=== PATIENT | male | born 1945 | race Caucasian/White ===

== ENCOUNTER 2024-11-08 15:51 | Inpatient (IN) ==
--- NOTE | 2024-11-08 16:54 | XRay Report ---
EXAM: Radiograph of the Chest 1 View INDICATION: Weakness. TECHNIQUE: Frontal view of the chest. COMPARISON: No relevant prior studies available. FINDINGS: Lungs and pleural spaces: No consolidation or pulmonary edema. No pleural effusion or pneumothorax. Heart: Shape and configuration within normal limits allowing for technique. Mediastinum: Normal contour. Bones/joints: Degenerative changes noted throughout the spine and both shoulders. No lytic or blastic lesions noted. Soft tissues: No abnormality noted. No radiopaque foreign body noted. Vasculature: Ectatic aorta with arch calcification. Upper abdomen: No abnormality noted. IMPRESSION: No acute cardiopulmonary disease. ACT 112: Negative or not required by law. Electronically signed by Betzy Hines 11-08-2024 4:53 PM
[2024-11-08 16:57] LABS: Albumin Globulin Ratio 1.2 (0.9-2); Albumin Level 3.6 gm/dl (3.4-5.0); BUN Creatinine Ratio 24.2 (10-20); Bilirubin,Total 0.7 mg/dl (0.2-1.0); Calcium 8.2 mg/dl (8.6-10.3); Creatinine Clr Calc Pharmacy 75.1 ml/min; Potassium 4.1 mmol/L (3.5-5.1); Total Protein 6.6 gm/dl (6.0-8.3)
[2024-11-08 17:11] LABS: Thyroid Stimulating Hormone 1.726 uIu/ml (0.300-4.500)
--- NOTE | 2024-11-08 17:11 | Electrocardiogram Report ---
Test Reason : Blood Pressure : */* mmHG Vent. Rate : 101 BPM Atrial Rate : 101 BPM P-R Int : 166 ms QRS Dur : 90 ms QT Int : 334 ms P-R-T Axes : 32 -24 30 degrees QTcB Int : 433 ms Sinus tachycardia with Premature atrial complexes Otherwise normal ECG No previous ECGs available Confirmed by Tomas Castro ([id number]) on 11/08/2024 5:10:59 PM Referred By: Confirmed By: Tomas Castro
[2024-11-08 17:32] LABS: Adenovirus PCR Not Detected (NotDetected); Bordetella parapertussis PCR Not Detected (NotDetected); Bordetella pertussis PCR Not Detected (NotDetected); Chlamydia pneumoniae PCR Not Detected (NotDetected); Coronavirus 229E PCR Not Detected (NotDetected); Coronavirus CoV-2 (COVID19)PCR Not Detected (NotDetected); Coronavirus HKU1 PCR Not Detected (NotDetected); Coronavirus NL63 PCR Not Detected (NotDetected); Coronavirus OC43PCR Not Detected (NotDetected); Human Metapneumovirus PCR Not Detected (NotDetected); Influenza A PCR Not Detected (NotDetected); Influenza B PCR Not Detected (NotDetected); Mycoplasma pneumoniae PCR Not Detected (NotDetected); Parainfluenza Virus 1 PCR Not Detected (NotDetected); Parainfluenza Virus 2 PCR Not Detected (NotDetected); Parainfluenza Virus 3 PCR Not Detected (NotDetected); Parainfluenza Virus 4 PCR Not Detected (NotDetected); Respiratory Syncytial VirusPCR Not Detected (NotDetected); Rhinovirus/Enterovirus PCR Not Detected (NotDetected)
[2024-11-08 17:50] LABS: Hematocrit (blood only) 41.4 % (42.0-52.0); Hemoglobin 14.4 g/dl (14.0-18.0); Mean Corpuscular Hgb Conc 34.8 g/dL (32.0-36.0); Mean Platelet Volume 8.9 fL (9.4-12.4); Platelet Count 211 K/uL (130-400); RDW Coefficient of Variation 13.4 % (11.5-14.5); RDW Standard Deviation 43.7 fL (36.4-46.3); Red Blood Count 4.65 M/uL (4.70-6.10); White Blood Count 9.05 K/ul (4.8-10.8)
[2024-11-08 18:34] LABS: Basophils # (auto) 0.06 K/uL (0.00-0.20); Basophils % (auto) 0.7 %; Immature Granulocytes # (auto) 0.07 K/uL (0.01-0.20); Immature Granulocytes % (auto) 0.8 %; Lymphocytes # (auto) 2.12 K/uL (1.20-3.40); Lymphocytes % (auto) 23.4 %; Monocytes # (auto) 0.52 K/uL (0.11-0.59); Monocytes % (auto) 5.7 %; Neutrophils # (auto) 6.28 K/uL (1.40-6.50); Neutrophils % (auto) 69.4 %
[2024-11-08] MEDS: SODIUM CHLORIDE 0.9% 1,000 ML IV ONE (19:02)
[2024-11-08 19:26] LABS: Appearance Urine Cloudy (Clear); Bacteria Urine Automated None Seen (None Seen); Bilirubin Urine Negative (Negative); Blood Urine 1+ (Negative); Color Urine Dark Yellow; Glucose Urine UA Negative (Negative); Ketones Urine 2+ (Negative); Leukocyte Esterase Urine 1+ (Negative); Mucus Urine Present (None Prsent); Nitrite Urine Negative (Negative); Protein Urine 2+ (Negative); RBC Urine Automated >20 /hpf (0-2); Specific Gravity Urine 1.032 (1.000-1.030); Urobilinogen Urine Negative (Negative); WBC Urine Automated >50 /hpf (0-5); pH Urine 5.5 (4.5-7.5)
[2024-11-08] MEDS: OPTIRAY 320 125ml IV ONE (19:39)
--- NOTE | 2024-11-08 20:02 | Emergency Department Note ---
Impression & Plan Urinary tract infection, Elevated troponin, Fever, Acute confusion ED Provider Note NAME: YURI ROBERT AGE: 79 SEX: M : 1945 ARRIVES VIA: Ambulance INFORMANT: Patient, ED PROVIDER(S): French Paulino MD CHIEF COMPLAINT: Confusion, fever HPI: This is a 71-year male presents for fever and confusion. Patient was at he does appointment in [place]. He began having generalized weakness, lethargy. EMS was then called. Patient was noted to be hypoxic for EMS to about 89%. Required 2 L nasal cannula. He is febrile to 38 degrees and given 1 g of Tylenol en route. Patient's is flu positive. EMS/physician was concerned about UTI however. Currently patient does any current chest pain, shortness of breath, fever, chills, nausea or vomiting. He is somewhat slow to respond and appears somewhat altered as well ROS: See above HPI for pertinent positives & negatives. A total of 10 systems reviewed and were otherwise negative. PAST MEDICAL HISTORY: See Below PAST SURGICAL HISTORY: See Below FAMILY HISTORY: See Below SOCIAL HISTORY: See Below HOME MEDICATIONS: See Below ALLERGIES: See Below VITALS: See Below PHYSICAL EXAMINATION: General: resting comfortably in no acute distress Head: Normocephalic and atraumatic Eyes: Normal inspection, extraocular muscles intact Ear, nose, throat: Normal external exam Neck: Normal range of motion Respiratory: lungs clear to auscultation bilaterally Cardiovascular: Regular rate/rhythm, no murmur GI: soft, nontender, no guarding or rebound Extremities: nontender, moves all extremities Neuro: The patient awake, not oriented appropriately conversive, no focal deficits, symmetric faces Skin: Warm, dry, and intact MEDICAL DECISION MAKING: This is a 79-year-old male for fever and confusion. Patient does have a somewhat tender suprapubic region but otherwise reassuring abdomen. He is hypoxic here requiring 4 L nasal cannula. He has been febrile. -Will do a pressure panel, x-ray, basic blood work, urinalysis -WC count is 9, hemoglobin is 14.4. Sodium is 128, slightly low. Troponin elevated at 32 without current chest pain -ECG independently interpreted by me with sinus tachycardia with PAC, rate of 101, normal AL, normal QRS, normal QTc, no ST segment elevations consistent with STEMI criteria -Urinalysis reveals signs of UTI. Will give ceftriaxone here -Chest Xray independently interpreted by me showing no pneumothorax, focal opacity, or pleural effusions. -Upper restaurant panel negative -With patient being hypoxic with a clear chest x-ray I will do CTA PE protocol -CTA of chest does not show PE, does show emphysema and sequelae of pulmonary arterial hypertension. Cardiomegaly with ascending aortic aneurysm is noted as well -Care discussed with Dr. Chavis for admission of UTI, fever, confusion, elevated troponin Differential diagnosis: Sepsis, pneumonia, UTI, upper respiratory infection, stroke Independent History obtained from: EMS Diagnostics interpreted by me: ECG: See above Cardiac Monitoring: An order was placed for continuous cardiac monitoring. The monitor shows a rate of 101 with sinus rhythm. Past Med/Surg History Problem List (Updated 11/09/24 @ 00:59 by French Paulino MD) Acute confusion (Acute) Fever (Acute) Elevated troponin (Acute) Balanitis BPH NOS w ur obs/LUTS Urinary tract infection (Acute) Social History Smoking Status: Former smoker Hx Alcohol Use: No Hx Substance Use: No Preferred Language: Telugu Cloud Infrastructure Architect Required: No Beliefs That Will Affect Care: None Current Living Situation: Spouse Other Information That Helps Us Care for You: No Feels Safe at Home: Yes Safety Concerns: Feels Safe At This Time Assistive Devices: Glasses Allergies Allergies Allergy/AdvReac Type Severity Reaction Status Date / Time atorvastatin AdvReac MYALGIA Verified 11/08/24 16:52 codeine AdvReac Vomiting Verified 11/08/24 16:54 hydrocodone AdvReac Nausea Verified 11/08/24 16:54 Home Meds Home Medications Medication Instructions Recorded Confirmed aspirin 81 mg tablet,delayed 81 mg PO DAILY 11/08/24 11/08/24 release meloxicam 7.5 mg tablet 7.5 mg PO BID 11/08/24 11/08/24 metformin 500 mg tablet 500 mg PO BID 11/08/24 11/08/24 prednisone 5 mg tablet 5 mg PO QAM 11/08/24 11/08/24 tamsulosin 0.4 mg capsule 0.4 mg PO HS 11/08/24 11/08/24 Results & Data (ED) Vital Signs Vital Signs - 24 hr 11/08/24 16:12 11/08/24 16:14 11/08/24 16:19 Temperature 37.3 C 37.3 C Temperature Source Oral Oral Pulse Rate 109 H Pulse Rate [Finger] 104 H Pulse Rhythm Regular Pulse Rhythm [Finger] Pulse Strength Normal Pulse Strength [Finger] Respiratory Rate 26 H 26 H Respiratory Effort / Characteristics Non-Labored Spontaneous Non-Labored Spontaneous Respiratory Depth Normal Normal Blood Pressure 124/76 Blood Pressure [Right Arm] 124/76 Blood Pressure Mean 92 Blood Pressure Mean [Right Arm] 92 Blood Pressure Position Sitting Blood Pressure Position [Right Arm] Pulse Oximetry 90 93 92 Oxygen Delivery Method Room Air Nasal Cannula Nasal Cannula Nasal Cannula Oxygen Flow Rate 0 4 4 Sepsis Recent Fever Within 48 Hours Yes Sepsis New/Unexplained Change in Mental Status No Sepsis Action Taken by Nursing Physician Notified Oxygen Flow Rate - Titration 3 Pulse Oximetry Post Tiitration 94 11/08/24 16:19 11/08/24 16:43 11/08/24 18:17 Temperature Temperature Source Pulse Rate 101 H 101 H Pulse Rate [Finger] 82 Pulse Rhythm Pulse Rhythm [Finger] Regular Pulse Strength Pulse Strength [Finger] Normal Respiratory Rate 22 22 Respiratory Effort / Characteristics Non-Labored Spontaneous Respiratory Depth Normal Blood Pressure Blood Pressure [Right Arm] 106/60 Blood Pressure Mean Blood Pressure Mean [Right Arm] 75 Blood Pressure Position Blood Pressure Position [Right Arm] Lying Pulse Oximetry 93 97 Oxygen Delivery Method Nasal Cannula Room Air Oxygen Flow Rate 4 Sepsis Recent Fever Within 48 Hours Sepsis New/Unexplained Change in Mental Status Sepsis Action Taken by Nursing Oxygen Flow Rate - Titration Pulse Oximetry Post Tiitration 11/08/24 20:44 Temperature Temperature Source Pulse Rate Pulse Rate [Finger] 97 H Pulse Rhythm Pulse Rhythm [Finger] Regular Pulse Strength Pulse Strength [Finger] Normal Respiratory Rate 16 Respiratory Effort / Characteristics Non-Labored Spontaneous Respiratory Depth Normal Blood Pressure Blood Pressure [Right Arm] 104/65 Blood Pressure Mean Blood Pressure Mean [Right Arm] 78 Blood Pressure Position Blood Pressure Position [Right Arm] Lying Pulse Oximetry 98 Oxygen Delivery Method Nasal Cannula Oxygen Flow Rate 4 Sepsis Recent Fever Within 48 Hours Sepsis New/Unexplained Change in Mental Status Sepsis Action Taken by Nursing Oxygen Flow Rate - Titration Pulse Oximetry Post Tiitration Laboratory Data 11/08/24 17:23 11/08/24 16:10 Lab Results 11/08/24 11/08/24 11/08/24 Range/Units 16:10 16:59 17:23 WBC Cancelled 9.05 RBC Cancelled 4.65 L Hgb Cancelled 14.4 Hct Cancelled 41.4 L MCV Cancelled 89.0 MCH Cancelled 31.0 MCHC Cancelled 34.8 RDW Std Deviation Cancelled 43.7 RDW Coeff of Crow Cancelled 13.4 Plt Count Cancelled 211 MPV Cancelled 8.9 L Immature Gran % (Auto) Cancelled 0.8 Neut % (Auto) Cancelled 69.4 Lymph % (Auto) Cancelled 23.4 Barron % (Auto) Cancelled 5.7 Eos % (Auto) Cancelled 0.0 Baso % (Auto) Cancelled 0.7 Neut # (Auto) Cancelled 6.28 Lymph # (Auto) Cancelled 2.12 Barron # (Auto) Cancelled 0.52 Eos # (Auto) Cancelled 0.00 Baso # (Auto) Cancelled 0.06 Immature Gran # (Auto) Cancelled 0.07 Absolute Nucleated RBC Cancelled Nucleated RBC % (auto) Cancelled Neutrophils % (Manual) Cancelled Band Neutrophils % Cancelled Lymphocytes % (Manual) Cancelled Prolymphocyte % Cancelled Reactive Lymphs % (Man) Cancelled Monocytes % (Manual) Cancelled Eosinophils % (Manual) Cancelled Basophils % (Manual) Cancelled Metamyelocytes % (Man) Cancelled Myelocytes % (Man) Cancelled Promyelocytes % (Man) Cancelled Blast Cells % (Manual) Cancelled Plasma Cell % (Manual) Cancelled Other Cells % Cancelled Nucleated RBC % Cancelled Neutrophils # (Manual) Cancelled Band Neutrophils # Cancelled Total Absolute Neuts Cancelled Lymphocytes # (Manual) Cancelled Prolymphocyte # Cancelled Reactive Lymphs # Cancelled Total Abs Lymphocytes Cancelled Monocytes # (Manual) Cancelled Eosinophils # (Manual) Cancelled Basophils # (Manual) Cancelled Metamyelocytes # (Man) Cancelled Myelocytes # (Manual) Cancelled Promyelocytes # (Man) Cancelled Blast Cells # (Man) Cancelled Plasma Cell # (Manual) Cancelled Other Cells # Cancelled Nucleated RBCs # (Man) Cancelled Hypersegmented Neuts Cancelled Hyposegmented Neuts Cancelled Hypogranular Neuts Cancelled Large Granular Lymphs Cancelled # Lrg Granular Lymphs Cancelled Hairy Cells Cancelled Smudge Cells Cancelled Toxic Granulation Cancelled Toxic Vacuolation Cancelled Dohle Bodies Cancelled Teresa Rods Cancelled Platelet Estimate Cancelled Hypogranular Platelets Cancelled Giant Platelets Cancelled Platelet Satelliting Cancelled RBC Morphology Cancelled Polychromasia Cancelled Hypochromasia Cancelled Poikilocytosis Cancelled Basophilic Stippling Cancelled Anisocytosis Cancelled Microcytosis Cancelled Macrocytosis Cancelled Spherocytes Cancelled Pappenheimer Bodies Cancelled Sickle Cells Cancelled Target Cells Cancelled Tear Drop Cells Cancelled Ovalocytes Cancelled Stomatocytes Cancelled Nguyen-Nucla Bodies Cancelled Echinocytes Cancelled Acanthocytes (Spur) Cancelled Rouleaux Cancelled RBC Agglutinates Cancelled Schistocytes Cancelled Sezary Cell Cancelled Sodium 128 L (136-145) mmol/L Potassium 4.1 (3.5-5.1) mmol/L Chloride 98 (98-107) mmol/L Carbon Dioxide 21 (21-32) mmol/L Anion Gap 9 (3-11) BUN 22 (6-23) mg/dl Creatinine 0.91 (0.6-1.4) mg/dl Est Cr Clr Drug Dosing 75.1 ml/min eGFR 86.27 BUN/Creatinine Ratio 24.2 H (10-20) Glucose 115 H (70-99(Fasting)) mg/dl Osmolality 276 L (280-300) mOsm/kg Lactate 1.1 (0.4-2.0) mmol/L Calcium 8.2 L (8.6-10.3) mg/dl Phosphorus 2.1 L (2.5-4.9) mg/dl Magnesium 1.7 (1.7-2.4) mg/dl Total Bilirubin 0.7 (0.2-1.0) mg/dl AST 31 (13-39) U/L ALT 24 (7-52) U/L Alkaline Phosphatase 54 (34-104) U/L Troponin I High Sens 32.0 H (0-20) pg/ml Total Protein 6.6 (6.0-8.3) gm/dl Albumin 3.6 (3.4-5.0) gm/dl Globulin 3.0 (2.5-4.0) gm/dl Albumin/Globulin Ratio 1.2 (0.9-2) TSH 1.726 (0.300-4.500) uIu/ml Urine Color Urine Appearance (Clear) Urine pH (4.5-7.5) Ur Specific Stafford (1.000-1.030) Urine Protein (Negative) Urine Glucose (UA) (Negative) Urine Ketones (Negative) Urine Blood (Negative) Urine Nitrite (Negative) Urine Bilirubin (Negative) Urine Urobilinogen (Negative) Ur Leukocyte Esterase (Negative) Urine WBC (Auto) (0-5) /hpf Urine RBC (Auto) (0-2) /hpf U Hyaline Cast (Auto) (0-2) /lpf U Epithel Cells (Auto) (0-2) /hpf Urine Bacteria (Auto) (None Seen) Urine Mucus (None Prsent) Ur Random Sodium mmol/L Adenovirus (PCR) Not Detected (NotDetected) B. pertussis DNA (PCR) Not Detected (NotDetected) B.parapertussis DNA PCR Not Detected (NotDetected) C. pneumoniae DNA (PCR) Not Detected (NotDetected) Coronavirus OC43 (PCR) Not Detected (NotDetected) Coronavirus HKU1 (PCR) Not Detected (NotDetected) Coronavirus 229E (PCR) Not Detected (NotDetected) SARS-CoV-2 (PCR) Not Detected (NotDetected) Coronavirus NL63 (PCR) Not Detected (NotDetected) Human Metapneumovir PCR Not Detected (NotDetected) Influenza Type A (PCR) Not Detected (NotDetected) Influenza Type B (PCR) Not Detected (NotDetected) M. pneumoniae (PCR) Not Detected (NotDetected) Parainfluenza 1 (PCR) Not Detected (NotDetected) Parainfluenza 2 (PCR) Not Detected (NotDetected) Parainfluenza 3 (PCR) Not Detected (NotDetected) Parainfluenza 4 (PCR) Not Detected (NotDetected) RSV (PCR) Not Detected (NotDetected) Entero/Rhino (PCR) Not Detected (NotDetected) Blood Parasites ID Cancelled 11/08/24 11/08/24 Range/Units 17:31 18:58 WBC RBC Hgb Hct MCV MCH MCHC RDW Std Deviation RDW Coeff of Crow Plt Count MPV Immature Gran % (Auto) Neut % (Auto) Lymph % (Auto) Barron % (Auto) Eos % (Auto) Baso % (Auto) Neut # (Auto) Lymph # (Auto) Barron # (Auto) Eos # (Auto) Baso # (Auto) Immature Gran # (Auto) Absolute Nucleated RBC Nucleated RBC % (auto) Neutrophils % (Manual) Band Neutrophils % Lymphocytes % (Manual) Prolymphocyte % Reactive Lymphs % (Man) Monocytes % (Manual) Eosinophils % (Manual) Basophils % (Manual) Metamyelocytes % (Man) Myelocytes % (Man) Promyelocytes % (Man) Blast Cells % (Manual) Plasma Cell % (Manual) Other Cells % Nucleated RBC % Neutrophils # (Manual) Band Neutrophils # Total Absolute Neuts Lymphocytes # (Manual) Prolymphocyte # Reactive Lymphs # Total Abs Lymphocytes Monocytes # (Manual) Eosinophils # (Manual) Basophils # (Manual) Metamyelocytes # (Man) Myelocytes # (Manual) Promyelocytes # (Man) Blast Cells # (Man) Plasma Cell # (Manual) Other Cells # Nucleated RBCs # (Man) Hypersegmented Neuts Hyposegmented Neuts Hypogranular Neuts Large Granular Lymphs # Lrg Granular Lymphs Hairy Cells Smudge Cells Toxic Granulation Toxic Vacuolation Dohle Bodies Teresa Rods Platelet Estimate Hypogranular Platelets Giant Platelets Platelet Satelliting RBC Morphology Polychromasia Hypochromasia Poikilocytosis Basophilic Stippling Anisocytosis Microcytosis Macrocytosis Spherocytes Pappenheimer Bodies Sickle Cells Target Cells Tear Drop Cells Ovalocytes Stomatocytes Nguyen-Nucla Bodies Echinocytes Acanthocytes (Spur) Rouleaux RBC Agglutinates Schistocytes Sezary Cell Sodium (136-145) mmol/L Potassium (3.5-5.1) mmol/L Chloride (98-107) mmol/L Carbon Dioxide (21-32) mmol/L Anion Gap (3-11) BUN (6-23) mg/dl Creatinine (0.6-1.4) mg/dl Est Cr Clr Drug Dosing ml/min eGFR BUN/Creatinine Ratio (10-20) Glucose (70-99(Fasting)) mg/dl Osmolality (280-300) mOsm/kg Lactate (0.4-2.0) mmol/L Calcium (8.6-10.3) mg/dl Phosphorus (2.5-4.9) mg/dl Magnesium (1.7-2.4) mg/dl Total Bilirubin (0.2-1.0) mg/dl AST (13-39) U/L ALT (7-52) U/L Alkaline Phosphatase (34-104) U/L Troponin I High Sens 33.4 H (0-20) pg/ml Total Protein (6.0-8.3) gm/dl Albumin (3.4-5.0) gm/dl Globulin (2.5-4.0) gm/dl Albumin/Globulin Ratio (0.9-2) TSH (0.300-4.500) uIu/ml Urine Color Dark Yellow Urine Appearance Cloudy A (Clear) Urine pH 5.5 (4.5-7.5) Ur Specific Stafford 1.032 H (1.000-1.030) Urine Protein 2+ H (Negative) Urine Glucose (UA) Negative (Negative) Urine Ketones 2+ H (Negative) Urine Blood 1+ H (Negative) Urine Nitrite Negative (Negative) Urine Bilirubin Negative (Negative) Urine Urobilinogen Negative (Negative) Ur Leukocyte Esterase 1+ H (Negative) Urine WBC (Auto) >50 H (0-5) /hpf Urine RBC (Auto) >20 H (0-2) /hpf U Hyaline Cast (Auto) 6-10 H (0-2) /lpf U Epithel Cells (Auto) 3-5 H (0-2) /hpf Urine Bacteria (Auto) None Seen (None Seen) Urine Mucus Present A (None Prsent) Ur Random Sodium 58 mmol/L Adenovirus (PCR) (NotDetected) B. pertussis DNA (PCR) (NotDetected) B.parapertussis DNA PCR (NotDetected) C. pneumoniae DNA (PCR) (NotDetected) Coronavirus OC43 (PCR) (NotDetected) Coronavirus HKU1 (PCR) (NotDetected) Coronavirus 229E (PCR) (NotDetected) SARS-CoV-2 (PCR) (NotDetected) Coronavirus NL63 (PCR) (NotDetected) Human Metapneumovir PCR (NotDetected) Influenza Type A (PCR) (NotDetected) Influenza Type B (PCR) (NotDetected) M. pneumoniae (PCR) (NotDetected) Parainfluenza 1 (PCR) (NotDetected) Parainfluenza 2 (PCR) (NotDetected) Parainfluenza 3 (PCR) (NotDetected) Parainfluenza 4 (PCR) (NotDetected) RSV (PCR) (NotDetected) Entero/Rhino (PCR) (NotDetected) Blood Parasites ID Administered Medications Sodium Chloride (Nss) 1,000 mls @ 80 mls/hr IV .[id number] Stop: 11/09/24 10:39 Last Admin: 11/08/24 22:49 Dose: 80 mls/hr Documented By: ABILIO Discontinued Medications Sodium Chloride (Nss) 1,000 mls @ 999 mls/hr IV .[id number] ONE Stop: 11/08/24 19:21 Last Infusion: 11/08/24 20:08 Dose: Infused Documented By: Admin: 11/08/24 19:02 Dose: 999 mls/hr Documented By: HARDY Ceftriaxone Sodium (Rocephin) 2,000 mg in 50 mls @ 100 mls/hr IV NOW STA Stop: 11/08/24 20:12 Last Infusion: 11/08/24 20:54 Dose: Infused Documented By: Admin: 11/08/24 20:24 Dose: 100 mls/hr Documented By: ABILIO Ioversol (Optiray 320 125ml) 119 ml IV ONCE ONE Stop: 11/08/24 19:40 Last Admin: 11/08/24 19:39 Dose: 119 ml Documented By: SHRAVAN Imaging Data Radiologist's Impression: Chest X-Ray 11/08/24 16:15 EXAM: Radiograph of the Chest 1 View INDICATION: Weakness. TECHNIQUE: Frontal view of the chest. COMPARISON: No relevant prior studies available. FINDINGS: Lungs and pleural spaces: No consolidation or pulmonary edema. No pleural effusion or pneumothorax. Heart: Shape and configuration within normal limits allowing for technique. Mediastinum: Normal contour. Bones/joints: Degenerative changes noted throughout the spine and both shoulders. No lytic or blastic lesions noted. Soft tissues: No abnormality noted. No radiopaque foreign body noted. Vasculature: Ectatic aorta with arch calcification. Upper abdomen: No abnormality noted. IMPRESSION: No acute cardiopulmonary disease. ACT 112: Negative or not required by law. Electronically signed by Betzy Hines 11-08-2024 4:53 PM Chest CTA 11/08/24 19:12 Exam(s): CTA CHEST IV Amt: 119ml optiray 320 EXAM: CT Angiography Chest With Intravenous Contrast CLINICAL HISTORY: Reason for exam: PE. TECHNIQUE: Axial computed tomographic angiography images of the chest with intravenous contrast. CTDI is 27.63 mGy and DLP is 874.47 mGy-cm. Automated exposure control was utilized for the study. A dose lowering technique was utilized adhering to the principles of ALARA. MIP reconstructed images were created and reviewed. COMPARISON: X-ray chest: 11/08/2024 FINDINGS: Diagnostic sensitivity is reduced by motion artifact. Pulmonary arteries: Mildly enlarged: 32 mm in diameter.. No pulmonary embolism. Aorta: Calcified/noncalcified atherosclerosis. Ascending aortic aneurysm: 44 mm in diameter. Heart: Mild/moderate cardiomegaly. Significant calcified atherosclerosis of the left coronary arteries, especially LAD. No significant pericardial effusion. No evidence of RV dysfunction. Lungs: Central airways are patent. Mild/moderate diffuse bronchial wall thickening, mild dilatation. Bibasilar subpleural and parenchymal fibrotic interstitial thickening with linear atelectatic changes. Mild centrilobular emphysematous changes. No mass. No consolidation. Pleural space: Right posterior pleural small rounded calcified plaques. No significant effusion. No pneumothorax. An elevated diaphragm LT>RT Bones/joints: No acute fracture. No dislocation. Multilevel degenerative spondylitic changes. Increased thoracic kyphosis. Soft tissues: Unremarkable. Lymph nodes: Unremarkable. No enlarged lymph nodes. Other findings: Liver and pancreas fatty infiltration. A contracted gallbladder. IMPRESSION: No evidence of pulmonary embolism. Centrilobular mild emphysema. Mildly enlarged main pulmonary artery, likely sequela secondary pulmonary arterial hypertension. Coronary arterial and aortic significant calcified/noncalcified atherosclerosis. Cardiomegaly. Ascending aortic aneurysm. . Electronically signed by: Kenny Neal MD, DORA 11/08/24 21:41 PM Discharge Plan Visit Data Chief Complaint: Lethargic ED Provider: French Paulino Discharge Problem: Urinary tract infection, Elevated troponin, Fever, Acute confusion Patient Disposition: Admitted As Inpatient Discharge Instructions Interventions: ED Discharge Assessment Last Done: 11/08/24 22:10
[2024-11-08] MEDS: cefTRIAXone SODIUM 2,000 MG/50 ML BAG IV STA (20:24)
--- NOTE | 2024-11-08 21:29 | History & Physical Report ---
Date of Service November 08, 2024 Assessment & Plan (1) Acute confusion: Plan: 79yo male with history of DM, BPH presenting with several days of fever, chills, progressive weakness/fatigue and confusion. endorses some baseline decline in memory of late. Suspect acute infection contributing to confusion. Likely UTI. -Admit to medical -Frequent orientation and delirium prevention strategies -Follow urine culture -Continue Ceftriaxone 2gm IV daily -Tylenol PRN -Zofran PRN (2) Urinary tract infection: Plan: Suspect UTI as source of patient's fever, chills and confusion. Noted to be barfield ving difficulty passing urine in the ER. Escobar catheter placed -Follow cultures sent from ER -Continue Ceftriaxone 2gm IV daily -Escobar catheter management -NSS at 80mL/hr x 2L ordered -Tylenol PRN -Zofran PRN (3) Hyponatremia: Plan: [id number], possibly contributing to confusion as well. No prior records available of prior Na. Patient appears clinically dry on exam - suspect hyponatremia secondary to decreased intake -Check urine and serum osmolality -Check random urine Na -Hydration with NSS at 80mL/hr x 2L ordered -Repeat chemistry in AM (4) Diabetes: Plan: Adequate control at home on Metformin. -Hold Metformin -ISS - goal blood sugar 110 - 140 (5) BPH (benign prostatic hyperplasia): Plan: Chronic. Patient having difficulty urinating in the ER. -Maintain Escobar catheter for now -Monitor I/Os -Continue Flomax 0.4mg po qHS (6) Polymyalgia rheumatica: Plan: Chronic. Consider acute flare if weakness continues after appropriate UTI treatment -Continue Prednisone 5mg po daily for now -Conitnue meloxicam 7.5mg po BID (monitor renal function) -Monitor Plan F/E/N - NSS at 80mL/hr x 2L, monitor electrolytes, Phos repletion with Neutraphos QID x 2 days, CC diet as tolerated Ppx - Lovenox for DVT prophylaxis Code - Full per discussion with patient Dispo - Observation to medical History of Present Illness Chief Complaint: confusion Primary Care Provider: DO Timbo Moreira is a pleasant 79yo male with history of DM, BPH and PMR on Prednisone 5mg po daily presenting with confusion. Patient developed URI symptoms on 10/30/24 with cough, congestion, fevers and chills. reports that since then he has had progressive generalized weakness, fatigue and confusion. He has spent a lot of time in bed. He has become more forgetful and disoriented at times. reports yesterday 11/07/24 he seemed to be even more confused than before - he didn't eat anything. Today he was more sleepy and difficult to arouse - reports that he was "incoherent" for a short time prior to arrival and was having difficulty dressing himself and ambulating. Patient endorses fever, chills, poor appetite and episodes of confusion/disorientation. He has been having some pain in his neck and shoulders which he has been using heat and Tylenol. Otherwise denies chest pain, palpitations, abdominal pain, nausea, vomiting, diarrhea. He has not had any urinary complaints. No focal deficits per . Patient was seen by his PCP today and was sent to the ER. In the ER patient initially afebrile with tachycardia and tachypnea. Was noted to be hypoxic initially and was placed on supplemental O2 - O2 turned off during my encounter and patient's saturation remained >93%. ER Course: NSS x 1L Ceftriaxone 2gm Allergies Allergy/AdvReac Type Severity Reaction Status Date / Time atorvastatin AdvReac MYALGIA Verified 11/08/24 16:52 codeine AdvReac Vomiting Verified 11/08/24 16:54 hydrocodone AdvReac Nausea Verified 11/08/24 16:54 Home Medications Medication Instructions Recorded Confirmed Type aspirin 81 mg tablet,delayed 81 mg PO DAILY 11/08/24 11/08/24 History release meloxicam 7.5 mg tablet 7.5 mg PO BID 11/08/24 11/08/24 History metformin 500 mg tablet 500 mg PO BID 11/08/24 11/08/24 History prednisone 5 mg tablet 5 mg PO QAM 11/08/24 11/08/24 History tamsulosin 0.4 mg capsule 0.4 mg PO HS 11/08/24 11/08/24 History Past Med/Surg History Problem List (Updated 11/09/24 @ 03:04 by Cynthia Chavis DO) Hyponatremia Acute confusion (Acute) Fever (Acute) Elevated troponin (Acute) Balanitis BPH NOS w ur obs/LUTS Urinary tract infection (Acute) Medical History (Updated 01/24/25 @ 03:04 by Cynthia Chavis DO) Polymyalgia rheumatica BPH (benign prostatic hyperplasia) Diabetes Social History Smoking Status: Former smoker Hx Alcohol Use: No Hx Substance Use: No Preferred Language: Japanese Reversal Print Inspector Required: No Beliefs That Will Affect Care: None Current Living Situation: Spouse Other Information That Helps Us Care for You: No Feels Safe at Home: Yes Safety Concerns: Feels Safe At This Time Assistive Devices: Glasses Review of Systems Review of Systems: All systems reviewed & are unremarkable except as noted in HPI & below Physical Exam Physical Exam: General: patient resting comfortably, NAD, non-toxic in appearance, slow to answer questions but does answer appropriately Skin: warm, dry, intact, no rashes or lesions HEENT: NC/AT, PERRL, EOMI, anicteric sclera, conjunctiva without injection, external ear normal to inspection and nontender, nares patent, dry mucus membranes, dentition intact, no oropharyngeal lesions, neck supple, trachea midline, no LAD, no thyromegaly, no JVD Heart: +S1/S2, regular, tachycardic, no m/r/g Lungs: equal air entry bilaterally, faint crackles in right base, no rhonchi/wheezes Abd: +BS, soft, NT/ND, no masses/organomegaly/ascites Ext: warm, 2+ pulses in UE/LE bilaterally, no clubbing/cyanosis or edema Neuro: nonfocal, patient AA&O x 4, speech intact, no facial droop, moving all extremities on command with equal strength 5/5 Results & Data Results & Data Vital Signs (Past 12 Hours) Vital Signs Temp Pulse Pulse Resp BP BP Pulse Ox 11/08/24 20:44 97 H 16 104/65 98 11/08/24 18:17 82 22 106/60 97 11/08/24 16:43 101 H 11/08/24 16:19 101 H 22 93 11/08/24 16:19 37.3 C 104 H 26 H 124/76 92 11/08/24 16:14 37.3 C 109 H 26 H 124/76 93 11/08/24 16:12 90 O2 Del Method O2 Flow Rate 11/08/24 20:44 Nasal Cannula 4 11/08/24 18:17 Room Air 11/08/24 16:43 11/08/24 16:19 Nasal Cannula 4 11/08/24 16:19 Nasal Cannula 4 11/08/24 16:14 Nasal Cannula 4 11/08/24 16:12 Room Air, Nasal Cannula 0 Laboratory Results Laboratory Results WBC 9.05 K/ul (4.8-10.8) 11/08/24 17:23 RBC 4.65 M/uL (4.70-6.10) L 11/08/24 17:23 Hgb 14.4 g/dl (14.0-18.0) 11/08/24 17:23 Hct 41.4 % (42.0-52.0) L 11/08/24 17:23 MCV 89.0 fL (80.0-100.0) 11/08/24 17:23 MCH 31.0 pg (25.0-34.0) 11/08/24 17: MCHC 34.8 g/dL (32.0-36.0) 11/08/24 17:23 RDW Std Deviation 43.7 fL (36.4-46.3) 11/08/24 17:23 RDW Coeff of Crow 13.4 % (11.5-14.5) 11/08/24 17:23 Plt Count 211 K/uL (130-400) 11/08/24 17:23 MPV 8.9 fL (9.4-12.4) L 11/08/24 17:23 Immature Gran % (Auto) 0.8 % 11/08/24 17:23 Neut % (Auto) 69.4 % 11/08/24 17:23 Lymph % (Auto) 23.4 % 11/08/24 17:23 [place] % (Auto) 5.7 % 11/08/24 17:23 Eos % (Auto) 0.0 % 11/08/24 17:23 Baso % (Auto) 0.7 % 11/08/24 17:23 Neut # (Auto) 6.28 K/uL (1.40-6.50) 11/08/24 17:23 Lymph # (Auto) 2.12 K/uL (1.20-3.40) 11/08/24 17:23 [place] # (Auto) 0.52 K/uL (0.11-0.59) 11/08/24 17:23 Eos # (Auto) 0.00 K/uL (0.00-0.50) 11/08/24 17:23 Baso # (Auto) 0.06 K/uL (0.00-0.20) 11/08/24 17:23 Immature Gran # (Auto) 0.07 K/uL (0.01-0.20) 11/08/24 17:23 Absolute Nucleated RBC Cancelled 11/08/24 16:10 Nucleated RBC % (auto) Cancelled 11/08/24 16:10 Neutrophils % (Manual) Cancelled 11/08/24 16:10 Band Neutrophils % Cancelled 11/08/24 16:10 Lymphocytes % (Manual) Cancelled 11/08/24 16:10 Prolymphocyte % Cancelled 11/08/24 16:10 Reactive Lymphs % (Man) Cancelled 11/08/24 16:10 Monocytes % (Manual) Cancelled 11/08/24 16:10 Eosinophils % (Manual) Cancelled 11/08/24 16:10 Basophils % (Manual) Cancelled 11/08/24 16:10 Metamyelocytes % (Man) Cancelled 11/08/24 16:10 Myelocytes % (Man) Cancelled 11/08/24 16:10 Promyelocytes % (Man) Cancelled 11/08/24 16:10 Blast Cells % (Manual) Cancelled 11/08/24 16:10 Plasma Cell % (Manual) Cancelled 11/08/24 16:10 Other Cells % Cancelled 11/08/24 16:10 Nucleated RBC % Cancelled 11/08/24 16:10 Neutrophils # (Manual) Cancelled 11/08/24 16:10 Band Neutrophils # Cancelled 11/08/24 16:10 Total Absolute Neuts Cancelled 11/08/24 16:10 Lymphocytes # (Manual) Cancelled 11/08/24 16:10 Prolymphocyte # Cancelled 11/08/24 16:10 Reactive Lymphs # Cancelled 11/08/24 16:10 Total Abs Lymphocytes Cancelled 11/08/24 16:10 Monocytes # (Manual) Cancelled 11/08/24 16:10 Eosinophils # (Manual) Cancelled 11/08/24 16:10 Basophils # (Manual) Cancelled 11/08/24 16:10 Metamyelocytes # (Man) Cancelled 11/08/24 16:10 Myelocytes # (Manual) Cancelled 11/08/24 16:10 Promyelocytes # (Man) Cancelled 11/08/24 16:10 Blast Cells # (Man) Cancelled 11/08/24 16:10 Plasma Cell # (Manual) Cancelled 11/08/24 16:10 Other Cells # Cancelled 11/08/24 16:10 Nucleated RBCs # (Man) Cancelled 11/08/24 16:10 Hypersegmented Neuts Cancelled 11/08/24 16:10 Hyposegmented Neuts Cancelled 11/08/24 16:10 Hypogranular Neuts Cancelled 11/08/24 16:10 Large Granular Lymphs Cancelled 11/08/24 16:10 # Lrg Granular Lymphs Cancelled 11/08/24 16:10 Hairy Cells Cancelled 11/08/24 16:10 Smudge Cells Cancelled 11/08/24 16:10 Toxic Granulation Cancelled 11/08/24 16:10 Toxic Vacuolation Cancelled 11/08/24 16:10 Dohle Bodies Cancelled 11/08/24 16:10 Teresa Rods Cancelled 11/08/24 16:10 Platelet Estimate Cancelled 11/08/24 16:10 Hypogranular Platelets Cancelled 11/08/24 16:10 Giant Platelets Cancelled 11/08/24 16:10 Platelet Satelliting Cancelled 11/08/24 16:10 RBC Morphology Cancelled 11/08/24 16:10 Polychromasia Cancelled 11/08/24 16:10 Hypochromasia Cancelled 11/08/24 16:10 Poikilocytosis Cancelled 11/08/24 16:10 Basophilic Stippling Cancelled 11/08/24 16:10 Anisocytosis Cancelled 11/08/24 16:10 Microcytosis Cancelled 11/08/24 16:10 Macrocytosis Cancelled 11/08/24 16:10 Spherocytes Cancelled 11/08/24 16:10 Pappenheimer Bodies Cancelled 11/08/24 16:10 Sickle Cells Cancelled 11/08/24 16:10 Target Cells Cancelled 11/08/24 16:10 Tear Drop Cells Cancelled 11/08/24 16:10 Ovalocytes Cancelled 11/08/24 16:10 Stomatocytes Cancelled 11/08/24 16:10 [place] Bodies Cancelled 11/08/24 16:10 Echinocytes Cancelled 11/08/24 16:10 Acanthocytes (Spur) Cancelled 11/08/24 16:10 Rouleaux Cancelled 11/08/24 16:10 RBC Agglutinates Cancelled 11/08/24 16:10 Schistocytes Cancelled 11/08/24 16:10 Sezary Cell Cancelled 11/08/24 16:10 Sodium 128 mmol/L (136-145) L 11/08/24 16:10 Potassium 4.1 mmol/L (3.5-5.1) 11/08/24 16:10 Chloride 98 mmol/L (98-107) 11/08/24 16:10 Carbon Dioxide 21 mmol/L (21-32) 11/08/24 16:10 Anion Gap 9 (3-11) 11/08/24 16:10 BUN 22 mg/dl (6-23) 11/08/24 16:10 Creatinine 0.91 mg/dl (0.6-1.4) 11/08/24 16:10 Est Cr Clr Drug Dosing 75.1 ml/min 11/08/24 16:10 eGFR 86.27 11/08/24 16:10 BUN/Creatinine Ratio 24.2 (10-20) H 11/08/24 16:10 Glucose 115 mg/dl (70-99(Fasting)) H 11/08/24 16:10 Osmolality 276 mOsm/kg (280-300) L 11/08/24 16:10 Lactate 1.1 mmol/L (0.4-2.0) 11/08/24 16:59 Calcium 8.2 mg/dl (8.6-10.3) L 11/08/24 16:10 Phosphorus 2.1 mg/dl (2.5-4.9) L 11/08/24 16:10 Magnesium 1.7 mg/dl (1.7-2.4) 11/08/24 16:10 Total Bilirubin 0.7 mg/dl (0.2-1.0) 11/08/24 16:10 AST 31 U/L (13-39) 11/08/24 16:10 ALT 24 U/L (7-52) 11/08/24 16:10 Alkaline Phosphatase 54 U/L (34-104) 11/08/24 16:10 Troponin I High Sens 29.9 pg/ml (0-20) H 11/08/24 23:34 Total Protein 6.6 gm/dl (6.0-8.3) 11/08/24 16:10 Albumin 3.6 gm/dl (3.4-5.0) 11/08/24 16:10 Globulin 3.0 gm/dl (2.5-4.0) 11/08/24 16:10 Albumin/Globulin Ratio 1.2 (0.9-2) 11/08/24 16:10 TSH 1.726 uIu/ml (0.300-4.500) 11/08/24 16:10 Urine Color Dark Yellow 11/08/24 18:58 Urine Appearance Cloudy (Clear) A 11/08/24 18:58 Urine pH 5.5 (4.5-7.5) 11/08/24 18:58 Ur Specific [place] 1.032 (1.000-1.030) H 11/08/24 18:58 Urine Protein 2+ (Negative) H 11/08/24 18:58 Urine Glucose (UA) Negative (Negative) 11/08/24 18:58 Urine Ketones 2+ (Negative) H 11/08/24 18:58 Urine Blood 1+ (Negative) H 11/08/24 18:58 Urine Nitrite Negative (Negative) 11/08/24 18:58 Urine Bilirubin Negative (Negative) 11/08/24 18:58 Urine Urobilinogen Negative (Negative) 11/08/24 18:58 Ur Leukocyte Esterase 1+ (Negative) H 11/08/24 18:58 Urine WBC (Auto) >50 /hpf (0-5) H 11/08/24 18:58 Urine RBC (Auto) >20 /hpf (0-2) H 11/08/24 18:58 U Hyaline Cast (Auto) 6-10 /lpf (0-2) H 11/08/24 18:58 U Epithel Cells (Auto) 3-5 /hpf (0-2) H 11/08/24 18:58 Urine Bacteria (Auto) None Seen (None Seen) 11/08/24 18:58 Urine Mucus Present (None Prsent) A 11/08/24 18:58 Urine Osmolality 806 mOsm/kg (500-800) H 11/08/24 18:58 Ur Random Sodium 58 mmol/L 11/08/24 18:58 Adenovirus (PCR) Not Detected (NotDetected) 11/08/24 16:10 B. pertussis DNA (PCR) Not Detected (NotDetected) 11/08/24 16:10 B.parapertussis DNA PCR Not Detected (NotDetected) 11/08/24 16:10 C. pneumoniae DNA (PCR) Not Detected (NotDetected) 11/08/24 16:10 Coronavirus OC43 (PCR) Not Detected (NotDetected) 11/08/24 16:10 Coronavirus HKU1 (PCR) Not Detected (NotDetected) 11/08/24 16:10 Coronavirus 229E (PCR) Not Detected (NotDetected) 11/08/24 16:10 SARS-CoV-2 (PCR) Not Detected (NotDetected) 11/08/24 16:10 Coronavirus NL63 (PCR) Not Detected (NotDetected) 11/08/24 16:10 Human Metapneumovir PCR Not Detected (NotDetected) 11/08/24 16:10 Influenza Type A (PCR) Not Detected (NotDetected) 11/08/24 16:10 Influenza Type B (PCR) Not Detected (NotDetected) 11/08/24 16:10 M. pneumoniae (PCR) Not Detected (NotDetected) 11/08/24 16:10 Parainfluenza 1 (PCR) Not Detected (NotDetected) 11/08/24 16:10 Parainfluenza 2 (PCR) Not Detected (NotDetected) 11/08/24 16:10 Parainfluenza 3 (PCR) Not Detected (NotDetected) 11/08/24 16:10 Parainfluenza 4 (PCR) Not Detected (NotDetected) 11/08/24 16:10 RSV (PCR) Not Detected (NotDetected) 11/08/24 16:10 Entero/Rhino (PCR) Not Detected (NotDetected) 11/08/24 16:10 Blood Parasites ID Cancelled 11/08/24 16:10 Impressions Chest X-Ray 11/08/24 16:15 EXAM: Radiograph of the Chest 1 View INDICATION: Weakness. TECHNIQUE: Frontal view of the chest. COMPARISON: No relevant prior studies available. FINDINGS: Lungs and pleural spaces: No consolidation or pulmonary edema. No pleural effusion or pneumothorax. Heart: Shape and configuration within normal limits allowing for technique. Mediastinum: Normal contour. Bones/joints: Degenerative changes noted throughout the spine and both shoulders. No lytic or blastic lesions noted. Soft tissues: No abnormality noted. No radiopaque foreign body noted. Vasculature: Ectatic aorta with arch calcification. Upper abdomen: No abnormality noted. IMPRESSION: No acute cardiopulmonary disease. ACT 112: Negative or not required by law. Electronically signed by Betzy Hines 11-08-2024 4:53 PM Chest CTA 11/08/24 19:12 Exam(s): CTA CHEST IV Amt: 119ml optiray 320 EXAM: CT Angiography Chest With Intravenous Contrast CLINICAL HISTORY: Reason for exam: PE. TECHNIQUE: Axial computed tomographic angiography images of the chest with intravenous contrast. CTDI is 27.63 mGy and DLP is 874.47 mGy-cm. Automated exposure control was utilized for the study. A dose lowering technique was utilized adhering to the principles of ALARA. MIP reconstructed images were created and reviewed. COMPARISON: X-ray chest: 11/08/2024 FINDINGS: Diagnostic sensitivity is reduced by motion artifact. Pulmonary arteries: Mildly enlarged: 32 mm in diameter.. No pulmonary embolism. Aorta: Calcified/noncalcified atherosclerosis. Ascending aortic aneurysm: 44 mm in diameter. Heart: Mild/moderate cardiomegaly. Significant calcified atherosclerosis of the left coronary arteries, especially LAD. No significant pericardial effusion. No evidence of RV dysfunction. Lungs: Central airways are patent. Mild/moderate diffuse bronchial wall thickening, mild dilatation. Bibasilar subpleural and parenchymal fibrotic interstitial thickening with linear atelectatic changes. Mild centrilobular emphysematous changes. No mass. No consolidation. Pleural space: Right posterior pleural small rounded calcified plaques. No significant effusion. No pneumothorax. An elevated diaphragm LT>RT Bones/joints: No acute fracture. No dislocation. Multilevel degenerative spondylitic changes. Increased thoracic kyphosis. Soft tissues: Unremarkable. Lymph nodes: Unremarkable. No enlarged lymph nodes. Other findings: Liver and pancreas fatty infiltration. A contracted gallbladder. IMPRESSION: No evidence of pulmonary embolism. Centrilobular mild emphysema. Mildly enlarged main pulmonary artery, likely sequela secondary pulmonary arterial hypertension. Coronary arterial and aortic significant calcified/noncalcified atherosclerosis. Cardiomegaly. Ascending aortic aneurysm. . Electronically signed by: Kenny Neal MD, DABR 11/08/24 21:41 PM ECG Additional Comments: DICTATED BY: Tomas Castro MD Test Reason : Blood Pressure : */* mmHG Vent. Rate : 101 BPM Atrial Rate : 101 BPM P-R Int : 166 ms QRS Dur : 90 ms QT Int : 334 ms P-R-T Axes : 32 -24 30 degrees QTcB Int : 433 ms Sinus tachycardia with Premature atrial complexes Otherwise normal ECG No previous ECGs available Confirmed by Tomas Castro ([id number]) on 11/08/2024 5:10:59 PM Referred By: Confirmed By: Tomas Castro PG Care Time/CCT Total # of Minutes Spent Total Time Spent with Patient: Total time spent is greater than 50% in coordination of care (as documented) at patient's floor/unit and/or counseling patient: Coding Level of Care Code 41568 INT INP/OBS CARE 3/75MIN Diagnoses Acute confusion R41.0 Urinary tract infection N39.0 Hyponatremia E87.1 Diabetes E11.9 BPH (benign prostatic hyperplasia) N40.0 Polymyalgia rheumatica M35.3
--- NOTE | 2024-11-08 21:42 | CT Scan Report ---
Exam(s): CTA CHEST IV Amt: 119ml optiray 320 EXAM: CT Angiography Chest With Intravenous Contrast CLINICAL HISTORY: Reason for exam: PE. TECHNIQUE: Axial computed tomographic angiography images of the chest with intravenous contrast. CTDI is 27.63 mGy and DLP is 874.47 mGy-cm. Automated exposure control was utilized for the study. A dose lowering technique was utilized adhering to the principles of ALARA. MIP reconstructed images were created and reviewed. COMPARISON: X-ray chest: 11/08/2024 FINDINGS: Diagnostic sensitivity is reduced by motion artifact. Pulmonary arteries: Mildly enlarged: 32 mm in diameter.. No pulmonary embolism. Aorta: Calcified/noncalcified atherosclerosis. Ascending aortic aneurysm: 44 mm in diameter. Heart: Mild/moderate cardiomegaly. Significant calcified atherosclerosis of the left coronary arteries, especially LAD. No significant pericardial effusion. No evidence of RV dysfunction. Lungs: Central airways are patent. Mild/moderate diffuse bronchial wall thickening, mild dilatation. Bibasilar subpleural and parenchymal fibrotic interstitial thickening with linear atelectatic changes. Mild centrilobular emphysematous changes. No mass. No consolidation. Pleural space: Right posterior pleural small rounded calcified plaques. No significant effusion. No pneumothorax. An elevated diaphragm LT>RT Bones/joints: No acute fracture. No dislocation. Multilevel degenerative spondylitic changes. Increased thoracic kyphosis. Soft tissues: Unremarkable. Lymph nodes: Unremarkable. No enlarged lymph nodes. Other findings: Liver and pancreas fatty infiltration. A contracted gallbladder. IMPRESSION: No evidence of pulmonary embolism. Centrilobular mild emphysema. Mildly enlarged main pulmonary artery, likely sequela secondary pulmonary arterial hypertension. Coronary arterial and aortic significant calcified/noncalcified atherosclerosis. Cardiomegaly. Ascending aortic aneurysm. . Electronically signed by: Kenny Neal MD, DABR 11/08/24 21:41 PM
[2024-11-08] MEDS ORDERED: ONDANSETRON INJ 2 MG/ML 2 ML VIAL IV PRN (22:10)
[2024-11-08 22:33] LABS: Magnesium 1.7 mg/dl (1.7-2.4); Phosphorus 2.1 mg/dl (2.5-4.9)
[2024-11-08] MEDS: SODIUM CHLORIDE 0.9% 1,000 ML IV SCH (22:49)
[2024-11-09] MEDS: ACETAMINOPHEN 325 MG TAB PO PRN (02:44)
[2024-11-09] MEDS ORDERED: GLUCOSE 10 TAB/TUBE PO PRN (03:07)
[2024-11-09] MEDS ORDERED: CARBOHYDRATES FOR HYPOGLYCEMIA PO PRN (03:07)
[2024-11-09] MEDS ORDERED: GLUCOSE 40% GEL 15 GM TUBE PO PRN (03:07)
[2024-11-09] MEDS ORDERED: GLUCAGON FOR INJ 1 MG VIAL SQ PRN (03:07)
[2024-11-09] MEDS ORDERED: DEXTROSE 50% 50 ML SYRINGE IV PRN (03:07)
[2024-11-09 06:58] LABS: BUN Creatinine Ratio 25.3 (10-20); Calcium 8.3 mg/dl (8.6-10.3); Creatinine Clr Calc Pharmacy 91.1 ml/min; Potassium 3.7 mmol/L (3.5-5.1)
[2024-11-09] MEDS: ASPIRIN 81 MG ECTAB PO SCH (08:30)
[2024-11-09] MEDS: predniSONE 5 MG TAB PO SCH (08:31)
[2024-11-09] MEDS: MELOXICAM 7.5 MG TAB PO SCH (08:32)
[2024-11-09] MEDS: POT PHOSPHATE MONOBASIC W/ SOD TAB PO SCH (08:32)
[2024-11-09] MEDS: ENOXAPARIN INJ 40 MG/0.4 ML SYR SQ SCH (08:32)
[2024-11-09] MEDS ORDERED: metFORMIN HCL 500 MG TAB PO SCH (09:00)
[2024-11-09] MEDS: INSULIN ASPART PER UNIT CHARGE SC SCH (09:17)
--- NOTE | 2024-11-09 10:28 | Hospitalist Progress Note ---
Date of Service November 09, 2024 Assessment & Plan (1) Acute metabolic encephalopathy: (2) Urinary tract infection: (3) Hyponatremia: (4) Acute urinary obstruction: (5) Ascending aortic aneurysm: Plan 79 y/o who had URI symptoms 10/30 and subsequent declining functional and mental status. Admitted with acute metabolic encephalopathy, UTI, hyponatremia, acute urinary obstruction underlying BPH Suspect UTI as source of patient's fever, chills and confusion. Noted to be having difficulty passing urine in the ER. Anthony catheter placed # UTI - continue ceftriaxone, culture pending # Acute metabolic encephalopathy - related to UTI and possibly hyponatremia # Moderate hyponatremia -given IV fluids for hypovolemia and Na 127-->128. Urine sodium elevated at 58, not on diuretic. Consistent with SIADH -unclear trigger has mild emphysema on CT -protein supplement bid, AM BMP # DM type 2 -metformin held -diabetic diet, PRN insulin # Acute urinary obstruction, BPH -anthony placed in ED -increased flomax to 0.8 mg HS -voiding trial - before discharge since mental status improved # ASCVD - based on CT in aorta and coronary arteries, especially LAD. Cardiomegaly. -minimally elevated HS-trop in ED at 29.9. Recheck trop low 30s. No chest pain. EKG - sinus tachy with pac's otherwise normal. No evidence of ACS. -check fasting lipids in AM -continue ASA, start statin if indicated -assess whether symptomatic, consider outpatient stress test and echo -will follow up with his asset protection assistant Dr. Good in [place] # Ascending aortic aneurysm - noted on CTA chest - 44mm -Echo - can be done as outpatient if none recent -Repeat CTA in 6 months, continue surveillance q 6-[address] -statin, B-renetta, avoidance of fluoroquinolones -will follow up with his asset protection assistant, PCP # mild emphysema noted on CTA chest -not symptomatic. Former smoker. Discussed with him # PMR - continue chronic prednisone 5 mg # hepatic steatosis, also fatty pancreas on CT -assess alcohol use -likely metabolic, has obesity BMI 36.5 and has diabetes DVT ppx - enoxaparin Admission and Anticipated Discharge Date Admission Date: November 08, 2024 Subjective Timbo feels much better and is no longer confused, confirmed by his at bedside Had some loose stools today, no abdominal pain Physical Exam 2 Physical Exam: PHYSICAL EXAMINATION Last 24h vital signs reviewed, see documentation in flowsheet General: comfortable appearing, no distress HEENT: Normocephalic, atraumatic, pupils round and equal, sclerae anicteric, no conjunctival injection, moist mucus membranes Lungs: Normal respiratory effort. Clear to auscultation bilaterally. No RRW Heart: Regular rate and rhythm, systolic murmur. No JVD Abdomen: Soft, nontender, nondistended. Bowel sounds present. Extremities: Warm, dry, well-perfused. No extremity edema. Tiarra urine in anthony bag Neuro: Alert and oriented x 4, face symmetric, moves 4 extremities well Psych: Normal affect and behavior Results & Data Results & Data Vital Signs (Past 12 Hours) Vital Signs Temp Pulse Pulse Resp BP Pulse Ox O2 Del Method 11/09/24 09:03 98.2 F 74 14 108/56 L 96 Room Air 11/09/24 07:14 72 11/09/24 03:39 100 F H 11/09/24 02:48 103.3 F H 107 H 20 117/95 92 Room Air 11/08/24 23:39 91 H 11/08/24 22:14 89 16 109/72 96 Room Air Laboratory Results 11/08/24 17:23 11/09/24 06:23 Diagnostic Findings Chest X-Ray 11/08/24 16:15 EXAM: Radiograph of the Chest 1 View INDICATION: Weakness. TECHNIQUE: Frontal view of the chest. COMPARISON: No relevant prior studies available. FINDINGS: Lungs and pleural spaces: No consolidation or pulmonary edema. No pleural effusion or pneumothorax. Heart: Shape and configuration within normal limits allowing for technique. Mediastinum: Normal contour. Bones/joints: Degenerative changes noted throughout the spine and both shoulders. No lytic or blastic lesions noted. Soft tissues: No abnormality noted. No radiopaque foreign body noted. Vasculature: Ectatic aorta with arch calcification. Upper abdomen: No abnormality noted. IMPRESSION: No acute cardiopulmonary disease. ACT 112: Negative or not required by law. Electronically signed by Betzy Hines 11-08-2024 4:53 PM Chest CTA 11/08/24 19:12 Exam(s): CTA CHEST IV Amt: 119ml optiray 320 EXAM: CT Angiography Chest With Intravenous Contrast CLINICAL HISTORY: Reason for exam: PE. TECHNIQUE: Axial computed tomographic angiography images of the chest with intravenous contrast. CTDI is 27.63 mGy and DLP is 874.47 mGy-cm. Automated exposure control was utilized for the study. A dose lowering technique was utilized adhering to the principles of ALARA. MIP reconstructed images were created and reviewed. COMPARISON: X-ray chest: 11/08/2024 FINDINGS: Diagnostic sensitivity is reduced by motion artifact. Pulmonary arteries: Mildly enlarged: 32 mm in diameter.. No pulmonary embolism. Aorta: Calcified/noncalcified atherosclerosis. Ascending aortic aneurysm: 44 mm in diameter. Heart: Mild/moderate cardiomegaly. Significant calcified atherosclerosis of the left coronary arteries, especially LAD. No significant pericardial effusion. No evidence of RV dysfunction. Lungs: Central airways are patent. Mild/moderate diffuse bronchial wall thickening, mild dilatation. Bibasilar subpleural and parenchymal fibrotic interstitial thickening with linear atelectatic changes. Mild centrilobular emphysematous changes. No mass. No consolidation. Pleural space: Right posterior pleural small rounded calcified plaques. No significant effusion. No pneumothorax. An elevated diaphragm LT>RT Bones/joints: No acute fracture. No dislocation. Multilevel degenerative spondylitic changes. Increased thoracic kyphosis. Soft tissues: Unremarkable. Lymph nodes: Unremarkable. No enlarged lymph nodes. Other findings: Liver and pancreas fatty infiltration. A contracted gallbladder. IMPRESSION: No evidence of pulmonary embolism. Centrilobular mild emphysema. Mildly enlarged main pulmonary artery, likely sequela secondary pulmonary arterial hypertension. Coronary arterial and aortic significant calcified/noncalcified atherosclerosis. Cardiomegaly. Ascending aortic aneurysm. . Electronically signed by: Kenny Neal MD, DABR 11/08/24 21:41 PM PG Care Time/CCT Total # of Minutes Spent Total Time Spent with Patient: Total time spent is greater than 50% in coordination of care (as documented) at patient's floor/unit and/or counseling patient: Coding Level of Care Code 31333 SUB INP/OBS CARE 3/50MIN Diagnoses Acute metabolic encephalopathy G93.41 Urinary tract infection N39.0 Hyponatremia E87.1 Acute urinary obstruction N13.9 Ascending aortic aneurysm I71.21
[2024-11-09 10:46] LABS: Troponin I High Sensitivity 35.1 pg/ml (0-20)
[2024-11-09] MEDS ORDERED: TAMSULOSIN HCL 0.4 MG CAP PO SCH (21:00)
[2024-11-09] MEDS: TAMSULOSIN HCL 0.4 MG CAP PO SCH (21:15)
[2024-11-09] MEDS: cefTRIAXone SODIUM 2,000 MG/50 ML BAG IV SCH (21:24)
[2024-11-09] MEDS: IBUPROFEN 200 MG TAB PO STA (22:55)
[2024-11-10 06:29] LABS: BUN Creatinine Ratio 15.7 (10-20); Calcium 8.1 mg/dl (8.6-10.3); Chol HDL Ratio 8.2 (0-5); Creatinine Clr Calc Pharmacy 82.3 ml/min; Potassium 3.6 mmol/L (3.5-5.1)
--- NOTE | 2024-11-10 18:44 | Hospitalist Progress Note ---
Date of Service November 10, 2024 Assessment & Plan (1) Acute metabolic encephalopathy: (2) Urinary tract infection: (3) Hyponatremia: (4) Acute urinary obstruction: (5) Ascending aortic aneurysm: Plan 79 y/o who had URI symptoms 10/30 and subsequent declining functional and mental status. Admitted with acute metabolic encephalopathy, UTI, hyponatremia, acute urinary obstruction underlying BPH Suspect UTI/pyelonephritis as source of patient's fever, chills and confusion. Noted to be having difficulty passing urine in the ER. Anthony catheter placed # UTI - continue ceftriaxone, culture with high counts of mixed estephania probable skin estephania -had fever to 102.2 this AM but only low grade throughout the day -repeat procal normal and there were no infectious findings on chest CT, no abdominal pain, no diarrhea or vomiting, recent URI and started to have recurrent sinus drainage today possibly acute bacterial sinusitis -ESR, CRP, PSA in AM. Has chronic back pain. -may be persistent fever due to pyelo, if further spikes will get CT abdomen and broaden antibiotics -continue ceftriaxone -AM CBC, CMP -repeat blood culture if spikes another high fever # Acute metabolic encephalopathy - related to UTI and possibly hyponatremia - resolved # Moderate hyponatremia -given IV fluids for hypovolemia and Na 127-->128. Urine sodium elevated at 58, not on diuretic. Consistent with SIADH -unclear trigger has mild emphysema on CT -protein supplement bid -improved to 131 - AM CMP # DM type 2 -metformin held -diabetic diet, PRN insulin - BG has been normal. Stop checks if remaining this low # Acute urinary obstruction, BPH -anthony placed in ED -increased flomax to 0.8 mg HS -voiding trial - before discharge since mental status improved # ASCVD - based on CT in aorta and coronary arteries, especially LAD. Cardiomegaly. -minimally elevated HS-trop in ED at 29.9. Recheck trop low 30s. No chest pain. EKG - sinus tachy with pac's otherwise normal. No evidence of ACS. -fasting lipids - LDL 105, HDL 21 -continue ASA, he reports he's been intolerant to all statins -no symptoms of angina or exertional dyspnea -will follow up with his mattress filling machine tender Dr. Good in [place] -consider rechallenge with statin of PCSK9 inhibitor but I'm not sure if he will meet criteria # Ascending aortic aneurysm - noted on CTA chest - 44mm -Echo - can be done as outpatient if none recent to make sure he does not have bicuspid valve -Repeat CTA in 6 months, continue surveillance q 6-[address] - B-renetta, avoidance of fluoroquinolones. Start metoprolol succ in AM -will follow up with his mattress filling machine tender, PCP # mild emphysema noted on CTA chest -not symptomatic. Former smoker. Discussed with him # PMR - continue chronic prednisone 5 mg # hepatic steatosis, also fatty pancreas on CT -assess alcohol use -likely metabolic, has obesity BMI 36.5 and has diabetes DVT ppx - enoxaparin Admission and Anticipated Discharge Date Admission Date: November 08, 2024 Subjective Timbo feels much better, confusion and malaise have resolved, has anthony so hard to tell if dysuria resolved. No cough/dyspnea, no chest pain Fever to 102.2 this morning Physical Exam 2 Physical Exam: PHYSICAL EXAMINATION Last 24h vital signs reviewed, see documentation in flowsheet General: comfortable appearing, no distress, sitting in chair eating bfast No change to exam 11/10 HEENT: Normocephalic, atraumatic, pupils round and equal, sclerae anicteric, no conjunctival injection, moist mucus membranes Lungs: Normal respiratory effort. Clear to auscultation bilaterally. No RRW Heart: Regular rate and rhythm, systolic murmur. No JVD Abdomen: Soft, nontender, nondistended. Bowel sounds present. Extremities: Warm, dry, well-perfused. No extremity edema. Tiarra urine in anthony bag Neuro: Alert and oriented x 4, face symmetric, moves 4 extremities well Psych: Normal affect and behavior Results & Data Results & Data Vital Signs (Past 12 Hours) Vital Signs Temp Pulse Resp BP Pulse Ox O2 Del Method 11/10/24 16:39 99.3 F 71 18 129/74 94 Room Air 11/10/24 07:35 Nasal Cannula 11/10/24 07:12 98.2 F 63 20 112/69 96 Room Air Laboratory Results 11/08/24 17:23 11/10/24 05:39 PG Care Time/CCT Total # of Minutes Spent Total Time Spent with Patient: Total time spent is greater than 50% in coordination of care (as documented) at patient's floor/unit and/or counseling patient: Coding Level of Care Code 56691 SUB INP/OBS CARE 3/50MIN Diagnoses Acute metabolic encephalopathy G93.41 Urinary tract infection N39.0 Hyponatremia E87.1 Acute urinary obstruction N13.9 Ascending aortic aneurysm I71.21
[2024-11-11 06:56] LABS: Hematocrit (blood only) 36.3 % (42.0-52.0); Mean Corpuscular Hemoglobin 31.7 pg (25.0-34.0); Mean Corpuscular Hgb Conc 35.8 g/dL (32.0-36.0); Mean Corpuscular Volume 88.5 fL (80.0-100.0); Platelet Count 235 K/uL (130-400); RDW Coefficient of Variation 13.2 % (11.5-14.5); RDW Standard Deviation 43.1 fL (36.4-46.3); White Blood Count 7.66 K/ul (4.8-10.8)
[2024-11-11 07:16] LABS: Albumin Level 3.2 gm/dl (3.4-5.0); BUN Creatinine Ratio 15.8 (10-20); Bilirubin,Total 0.5 mg/dl (0.2-1.0); C Reactive Protein 9.29 mg/dl (0-0.5); Calcium 8.2 mg/dl (8.6-10.3); Creatinine Clr Calc Pharmacy 89.9 ml/min; Globulin 3.1 gm/dl (2.5-4.0); Potassium 3.5 mmol/L (3.5-5.1); Total Protein 6.3 gm/dl (6.0-8.3)
[2024-11-11] MEDS: METOPROLOL SUCC 25MG EXT REL TAB PO SCH (08:18)
--- NOTE | 2024-11-11 19:02 | Hospitalist Progress Note ---
Date of Service November 11, 2024 Assessment & Plan (1) Acute metabolic encephalopathy: (2) Urinary tract infection: (3) Hyponatremia: (4) Acute urinary obstruction: (5) Ascending aortic aneurysm: Plan 79 y/o who had URI symptoms 10/30 and subsequent declining functional and mental status. Admitted with acute metabolic encephalopathy, UTI, hyponatremia, acute urinary obstruction underlying BPH Suspect UTI/pyelonephritis as source of patient's fever, chills and confusion. he did have new bilateral back pain prior to admission that is now resolved.. Noted to be having difficulty passing urine in the ER. Anthony catheter placed # UTI - continue ceftriaxone, culture with high counts of mixed estephania probable skin estephania -had fever to 102.2 A.m. of 11/10 but only low-grade since then -repeat procal normal and there were no infectious findings on chest CT, no abdominal pain, no diarrhea or vomiting, recent URI and started to have recurrent sinus drainage today possibly acute bacterial sinusitis -labs this AM ESR minimally elevated normal for age at 29, CRP 9.3 reflects acute infection, PSA 1.36 and procalcitonin 0.34 -likely was persistent fever due to pyelo, continue ceftriaxone -repeat blood culture if spikes another high fever # Acute metabolic encephalopathy - related to UTI and possibly hyponatremia - resolved # Moderate hyponatremia -given IV fluids for hypovolemia and Na 127-->128. Urine sodium elevated at 58, not on diuretic. Consistent with SIADH -unclear trigger has mild emphysema on CT -protein supplement bid -129 today, suspect chronic issue. stable and asymptomatic # DM type 2 -metformin held -diabetic diet, PRN insulin - BG has been normal. Stop checks if remaining this low # Acute urinary obstruction, BPH -anthony placed in ED -increased flomax to 0.8 mg HS -voiding trial today # ASCVD - based on CT in aorta and coronary arteries, especially LAD. Cardiomegaly. -minimally elevated HS-trop in ED at 29.9. Recheck trop low 30s. No chest pain. EKG - sinus tachy with pac's otherwise normal. No evidence of ACS. -fasting lipids - LDL 105, HDL 21 -continue ASA, he reports he's been intolerant to all statins -no symptoms of angina or exertional dyspnea -will follow up with his manager supply chain planning Dr. Good in [place] -consider rechallenge with statin of PCSK9 inhibitor but I'm not sure if he will meet criteria # Ascending aortic aneurysm - noted on CTA chest - 44mm -Echo - can be done as outpatient if none recent to make sure he does not have bicuspid valve -Repeat CTA in 6 months, continue surveillance q 6-[address] - B-renetta, avoidance of fluoroquinolones. Start metoprolol succ in AM -will follow up with his manager supply chain planning, PCP # mild emphysema noted on CTA chest -not symptomatic. Former smoker. Discussed with him # PMR - continue chronic prednisone 5 mg # hepatic steatosis, also fatty pancreas on CT -assess alcohol use -likely metabolic, has obesity BMI 36.5 and has diabetes DVT ppx - enoxaparin Ready for discharge within 24h but is too weak today and needs PT/OT eval needed to use a walker to get to the bathroom safely with RN, he usually does not use any assistive devices Admission and Anticipated Discharge Date Admission Date: November 08, 2024 Subjective Timbo is doing great he would like to have a voiding trial prior to discharge he is significantly weaker than baseline, discussed with bedside RN and his he will need a PT and OT eval he needed to use a walker to get to the bathroom he usually does not use any assistive devices Physical Exam 2 Physical Exam: PHYSICAL EXAMINATION Last 24h vital signs reviewed, see documentation in flowsheet General: sitting up in the chair midday visiting with family No change to exam 11/11 HEENT: Normocephalic, atraumatic, pupils round and equal, sclerae anicteric, no conjunctival injection, moist mucus membranes Lungs: Normal respiratory effort. Clear to auscultation bilaterally. No RRW Heart: Regular rate and rhythm, systolic murmur. No JVD Abdomen: Soft, nontender, nondistended. Bowel sounds present. Extremities: Warm, dry, well-perfused. No extremity edema. Tiarra urine in anthony bag Neuro: Alert and oriented x 4, face symmetric, moves 4 extremities well Psych: Normal affect and behavior Results & Data Results & Data Vital Signs (Past 12 Hours) Vital Signs Temp Pulse Resp BP Pulse Ox O2 Del Method O2 Flow Rate 11/11/24 15:27 98.2 F 67 18 135/76 93 Room Air 11/11/24 09:59 Nasal Cannula 2 11/11/24 07:47 98.8 F 81 20 129/68 91 Room Air Laboratory Results 11/11/24 06:12 11/11/24 06:12 PG Care Time/CCT Total # of Minutes Spent Total Time Spent with Patient: Total time spent is greater than 50% in coordination of care (as documented) at patient's floor/unit and/or counseling patient: Coding Level of Care Code 55296 SUB INP/OBS CARE 2/35MIN Diagnoses Acute metabolic encephalopathy G93.41 Urinary tract infection N39.0 Hyponatremia E87.1 Acute urinary obstruction N13.9 Ascending aortic aneurysm I71.21
[2024-11-11] MEDS: cefTRIAXone SODIUM 2,000 MG/50 ML BAG IV SCH (20:22)
[2024-11-12 07:04] VITALS: BP 130/70; PULSE 65; RESP 16; TEMP 99.5; O2SAT 96
--- NOTE | 2024-11-12 08:26 | Hospitalist Progress Note ---
Date of Service November 12, 2024 Assessment & Plan (1) Acute metabolic encephalopathy: (2) Urinary tract infection: (3) Hyponatremia: (4) Acute urinary obstruction: (5) Ascending aortic aneurysm: Plan 79 y/o who had URI symptoms 10/30 and subsequent declining functional and mental status. Admitted with acute metabolic encephalopathy, UTI, hyponatremia, acute urinary obstruction underlying BPH Suspect UTI/pyelonephritis as source of patient's fever, chills and confusion. he did have new bilateral back pain prior to admission that is now resolved.. Noted to be having difficulty passing urine in the ER. Anthony catheter placed # UTI - clinically suspected, culture with high counts,complete course of antibiotics currently on ceftriaxone -concern regarding recurrent sinus drainage possibly acute bacterial sinusitis -repeat blood culture if spikes another high fever risk worsened by BPH, anthony placed continues on flomax now higher dose # Acute metabolic encephalopathy - related to UTI poa and possibly hyponatremia - resolved # Moderate hyponatremia -given IV fluids for hypovolemia and Na 127-->128. Urine sodium elevated at 58, not on diuretic. Consistent with SIADH -unclear trigger has mild emphysema on CT -protein supplement bid suspect chronic issue. stable and asymptomatic # DM type 2 -metformin held -diabetic diet, PRN insulin - BG has been normal. Stop checks if remaining this low # ASCVD - based on CT in aorta and coronary arteries, especially LAD. Cardiomegaly. -minimally elevated HS-trop in ED at 29.9. Recheck trop low 30s. No chest pain. EKG - sinus tachy with pac's otherwise normal. No evidence of ACS. -fasting lipids - LDL 105, HDL 21 -continue ASA, he reports he's been intolerant to all statins -no symptoms of angina or exertional dyspnea -will follow up with his prison guard Dr. Good in [place] -consider rechallenge with statin of PCSK9 inhibitor but I'm not sure if he will meet criteria # Ascending aortic aneurysm - noted on CTA chest - 44mm -Echo - can be done as outpatient if none recent to make sure he does not have bicuspid valve -Repeat CTA in 6 months, continue surveillance q 6-[address] - B-renetta, avoidance of fluoroquinolones. Start metoprolol succ in AM -will follow up with his prison guard, PCP # mild emphysema noted on CTA chest -not symptomatic. Former smoker. Discussed with him # PMR - continue chronic prednisone 5 mg # hepatic steatosis, also fatty pancreas on CT -assess alcohol use -likely metabolic, has obesity BMI 36.5 and has diabetes DVT ppx - enoxaparin needed to use a walker to get to the bathroom safely with RN, he usually does not use any assistive devices- PT/OT eval Admission and Anticipated Discharge Date Admission Date: November 11, 2024 Results & Data Results & Data Vital Signs (Past 12 Hours) Vital Signs Temp Pulse Resp BP Pulse Ox O2 Del Method 11/12/24 07:03 99.5 F 65 16 130/70 96 Room Air 11/11/24 23:33 99.7 F H 88 20 138/75 93 Room Air PG Care Time/CCT Total # of Minutes Spent Total Time Spent with Patient: Total time spent is greater than 50% in coordination of care (as documented) at patient's floor/unit and/or counseling patient: Coding Diagnoses Acute metabolic encephalopathy G93.41 Urinary tract infection N39.0 Hyponatremia E87.1 Acute urinary obstruction N13.9 Ascending aortic aneurysm I71.21
--- NOTE | 2024-11-12 13:32 | Communication Note ---
Date of Service: November 12, 2024 By CMS guidelines, a determination that the admission or continued stay is not medically necessary has been made by a member of the UR committee and jessy hastings for this hospital stay, therefore a Code 44 will be completed and the Inpatient admission will be changed to outpatient.
--- NOTE | 2024-11-12 13:33 | Communication Note ---
Date of Service: November 12, 2024 By CMS guidelines, a determination that the admission or continued stay is not medically necessary has been made by a member of the UR committee and a ph ysician for this hospital stay, therefore a Code 44 will be completed and the Inpatient admission will be changed to outpatient.
--- NOTE | 2024-11-12 13:52 | Discharge Summary ---
Discharge Summary Date of Service November 12, 2024 Principal Dx & Hospital Course #1 = Principal Diagnosis (1) Acute metabolic encephalopathy: (2) Urinary tract infection: (3) Hyponatremia: (4) Acute urinary obstruction: (5) Ascending aortic aneurysm: Plan 79 y/o who had URI symptoms 10/30 and subsequent declining functional and mental status. Admitted with acute metabolic encephalopathy, UTI, hyponatremia, acute urinary obstruction underlying BPH Suspect UTI poa as source of patient's fever, chills and confusion. he did have new bilateral back pain prior to admission that is now resolved no current issues with difficulty voiding # UTI - clinically suspected, culture with high counts,complete course of antibiotics 3 additional days of levaquin after discharge -concern regarding recurrent sinus drainage possibly acute bacterial sinusitis -repeat blood culture if spikes another high fever risk worsened by BPH, anthony placed continues on flomax now higher dose # Acute metabolic encephalopathy - related to UTI poa and possibly hyponatremia - resolved # Hyponatremia suspect chronic issue. stable and asymptomatic # DM type 2 -metformin resume at pa with carbohydrate conservative meals # ASCVD - based on CT in aorta and coronary arteries, especially LAD. Cardiomegaly. -minimally elevated HS-trop in ED at 29.9. Recheck trop low 30s. No chest pain. EKG - sinus tachy with pac's otherwise normal. No evidence of ACS. -fasting lipids - LDL 105, HDL 21 -continue ASA, he reports he's been intolerant to all statins -no symptoms of angina or exertional dyspnea -will follow up with his fundraising sale representative Dr. Good in [place] # Ascending aortic aneurysm - noted on CTA chest - 44mm -Echo - can be done as outpatient if none recent to make sure he does not have bicuspid valve -Repeat CTA in 6 months, continue surveillance q 6-[address] - B-renetta, avoidance of fluoroquinolones. Start metoprolol succ in AM -will follow up with his fundraising sale representative, PCP # mild emphysema noted on CTA chest -not symptomatic. Former smoker. Discussed with him # PMR - continue chronic prednisone, short time of increased dose to improve symptoms at discharge # hepatic steatosis, also fatty pancreas on CT -assess alcohol use -likely metabolic, has obesity BMI 36.5 and has diabetes ambulating in room Notes For Next Care Provider notices memory issues with pt pre illness, cannot recall name of medicine started in office, did advise not to restart at home as has been well off it here Admission HPI Per Admitting Provider Timbo Vail is a pleasant 79yo male with history of DM, BPH and PMR on Prednisone 5mg po daily presenting with confusion. Patient developed URI symptoms on 10/30/24 with cough, congestion, fevers and chills. reports that since then he has had progressive generalized weakness, fatigue and confusion. He has spent a lot of time in bed. He has become more forgetful and disoriented at times. reports yesterday 11/07/24 he seemed to be even more confused than before - he didn't eat anything. Today he was more sleepy and difficult to arouse - reports that he was "incoherent" for a short time prior to arrival and was having difficulty dressing himself and ambulating. Patient endorses fever, chills, poor appetite and episodes of confusion/disorientation. He has been having some pain in his neck and shoulders which he has been using heat and Tylenol. Otherwise denies chest pain, palpitations, abdominal pain, nausea, vomiting, diarrhea. He has not had any urinary complaints. No focal deficits per . Patient was seen by his PCP today and was sent to the ER. In the ER patient initially afebrile with tachycardia and tachypnea. Was noted to be hypoxic initially and was placed on supplemental O2 - O2 turned off during my encounter and patient's saturation remained >93%. ER Course: NSS x 1L Ceftriaxone 2gm Discharge Exam awake and alert walking in room and halls per bedside nurse cardiac regular abd no upper abd pain or LLQ pain Discharge Plan Discharge Items Patient Disposition: Home - Self-Care Reason For Visit: CONFUSION Discharge Diagnosis: urine infection on admission confusion now resolved Flare of PMR Activity: Resume your previous activity Non-emergency contact: Primary Care Provider Call non-emergency contact if: your symptoms worsen Follow-up/Referrals: Mono Galarza DO [Primary Care Provider] - 11/19/24 10:00 am (Appointment will be in the [place] office) Diet: Carb Consistent or DM2 Addtl Attending Provider Instructions: It is believed that you did have a urine infection on presentation that is what made you feel so pooly, although your urine did not confirm and exact bacteria you will be on an oral antibiotic to complete a weeks total due to your flare of your PMR we will increase your prednisone to 10 mg daily for week, then reduce to 7.5 mg daily for a week then return to 5 mg discussion with your reveals that you may have been on a new medicine for memory started by your pcp, please stop this medicine in case it was also a part of you not feeling well, discuss restarting this at your follow up appointment Pending Studies at Discharge: No Stand-Alone Forms: My [facility], Smoking Cessation Medications and DC Order Prescriptions: New prednisone 2.5 mg tablet 2.5 mg PO UD Qty: 21 0RF Rx Instructions: take with 5 mg tabs. for first week after dc take 2 a day to equal 10 mg for second week after dc take one a day to equal 7.5 mg levofloxacin 500 mg tablet 500 mg PO DAILY 3 Days Qty: 3 0RF Continued metformin 500 mg tablet 500 mg PO BID prednisone 5 mg tablet 5 mg PO QAM meloxicam 7.5 mg tablet 7.5 mg PO BID tamsulosin 0.4 mg capsule 0.4 mg PO HS aspirin [Aspirin Low-Strength] 81 mg Tablet,Delayed Release (Dr/Ec) 81 mg PO DAILY Discharge Orders: Discharge Order (Routine); Ordered 11/12/24 Ordered By: Olegario Cooper Admission Data Admit Date/Time: 11/11/24 19:27 Attending Provider: Olegario Cooper Admit Provider: Cynthia Chavis Primary Care Provider: Mono Galarza Other Providers: Cynthia Chavis Hospital Stay Data Consultations 11/08/24 20:50 ED Decision to Admit Stat Diagnostic Imagining Performed 11/08/24 19:12 CT for pulmonary embolism PE [CT angio chest PE protocol] Stat Pending Results Patient Have Any Pending Studies at Discharge: No Discharge Instructions Given to Patient (Per Discharging Provider) It is believed that you did have a urine infection on presentation that is what made you feel so pooly, although your urine did not confirm and exact bacteria you will be on an oral antibiotic to complete a weeks total due to your flare of your PMR we will increase your prednisone to 10 mg daily for week, then reduce to 7.5 mg daily for a week then return to 5 mg discussion with your reveals that you may have been on a new medicine for memory started by your pcp, please stop this medicine in case it was also a part of you not feeling well, discuss restarting this at your follow up appointment Total Time Total Time Spent Total Time Spent (In Minutes): greater than 30 minutes required to prepare dc, including discussion with and bedside nurse Coding Level of Care Code 81641 INP/OBS DISCH >30 MIN Diagnoses Acute metabolic encephalopathy G93.41 Urinary tract infection N39.0 Hyponatremia E87.1 Acute urinary obstruction N13.9 Ascending aortic aneurysm I71.21
== END 2024-11-12 16:22 | disposition home or self-care (01) | DRG 689 ==
LOC: ED 15:51 → EDINP 15:51 → SUATTDRO 21:59 → 3N 22:10 → SUATTDRO 11-11 19:27